=== PATIENT | female | born 1960 ===

== ENCOUNTER 2020-07-18 05:38 | Inpatient (IN) | payer OTHER ==
[~2020-07-18] VITALS: Ht 152.4 cm; Wt 93.0 kg
[~2020-07-18 05:38] MED LIST: CHILDREN'S ASPI81 MG PO; FOLIC ACID PO; OCREVUS300 MG/10 IV; PROZAC PO; TOPROL PO; TOPROL XL25 M1 PO
[2020-07-19] MEDS ORDERED: LORATADINE10 MG (10:38)
[2020-07-19] MEDS ORDERED: FOLIC ACID1 MG (10:38)
[2020-07-19] MEDS ORDERED: FLUOXETINE HCL20 MG (10:38)
[2020-07-19] MEDS ORDERED: LEVALBUTEROL TA15 GM (10:39)
[2020-07-19] MEDS ORDERED: QVAR REDIHALE10.6 GM (10:39)
== END 2020-07-19 16:23 | disposition home or self-care (01) | DRG 743 ==
LOC: CIR.AMB 05:38 → O/R 11:20 → OB/GYN 11:20 → CIR.AMB 07-19 10:15 → OB/GYN 07-19 16:23
PROVIDERS: ADMIT Obstetrics & Gynecology; ATTEND Obstetrics & Gynecology
PROC: 0UB98ZZ Excision of Uterus, Via Natural or Artificial Opening Endoscopic (ICD-10-PCS; 2020-07-18)
PROC: 0UDB8ZZ Extraction of Endometrium, Via Natural or Artificial Opening Endoscopic (ICD-10-PCS; principal; 2020-07-18 08:15)
DX: N84.0 Polyp of corpus uteri (principal); N95.0 Postmenopausal bleeding